=== PATIENT | female | born 1980 ===

== ENCOUNTER 2020-11-07 23:09 | Outpatient (CLI) | payer OTHER | END 2020-11-08 13:02 | disposition home or self-care (01) | LOC: OBS/DEL 23:09 | PROVIDERS: ATTEND Specialist | DX: O36.5930 Maternal care for other known or suspected poor fetal growth, third trimester, not applicable or unspecified (principal); O26.613 Liver and biliary tract disorders in pregnancy, third trimester; K83.1 Obstruction of bile duct; Z3A.33 33 weeks gestation of pregnancy ==